=== PATIENT | male | born 1935 | race African-American/Black ===

== ENCOUNTER 2019-01-15 09:49 | Inpatient (IN) | payer MEDICARE ==
[~2019-01-15] VITALS: Ht 165.1 cm; Wt 62.6 kg
[~2019-01-15 09:49] MED LIST: ALBU05 IH; DILT180C3 PO; FERR-43 PO; FOLI-43 PO; PANT40TA4 PO; RIVA10TA PO; THIAMINE; TIOT18CA3 IH; UNK MEDS
[2019-01-15] MEDS ORDERED: SODIUM CHLORIDE 0.9% 500 ML IV ONE (10:39)
[2019-01-15 11:07] LABS: BASOPHILS % 1.2 % (0.0-2.0); EOSINOPHILS % 1.7 % (0.0-5.0); HEMATOCRIT. 41.7 % (42.0-52.0); HEMOGLOBIN. 13.4 g/dL (14.0-18.0); LYMPHOCYTES % 21.4 % (20.0-50.0); MEAN CORPUSCULAR HEMOGLOBIN 27.3 pg (28.0-32.0); MEAN CORPUSCULAR VOLUME 85.1 fL (80.0-94.0); MEAN PLATELET VOLUME 9.7 fl (7.4-10.4); MONOCYTES % 7.2 % (2.0-8.0); NEUTROPHILS % 68.5 % (40.0-76.0); PLATELET 183 x1000/uL (130-400); RED CELL DISTRIBUTION WIDTH 15.3 % (11.6-14.6)
[2019-01-15 11:52] LABS: CHLORIDE 106 mEq/L (98-107)
[2019-01-15] MEDS ORDERED: ASPIRIN 325MG TABLET PO ONE (12:45)
[2019-01-15] MEDS ORDERED: ALBUTEROL (0.083%) 2.5MG/3ML NEB HHN PRN (14:30)
[2019-01-15 16:00] VITALS: BP 143/60
[2019-01-15] MEDS ORDERED: CLONIDINE 0.1MG TABLET PO PRN (16:15)
[2019-01-15] MEDS ORDERED: HYDRALAZINE 20MG/ML VIAL IV PRN (16:15)
[2019-01-15] MEDS: RIVAROXABAN 15 MG TABLET PO SCH (17:54)
[2019-01-15] MEDS: DILTIAZEM HCL 30MG TABLET PO SCH (17:54)
[2019-01-15 20:26] VITALS: BP 166/75
[2019-01-16 00:22] VITALS: BP 100/64
[2019-01-16 06:29] LABS: CHLORIDE 110 mEq/L (98-107)
[2019-01-16 06:44] LABS: TOTAL IRON BINDING CAPACITY 202 ug/dL (250-450)
[2019-01-16 06:45] LABS: BASOPHILS % 0.6 % (0.0-2.0); EOSINOPHILS % 2.5 % (0.0-5.0); HDL CHOLESTEROL 91 mg/dL (40-59); HEMATOCRIT. 35.5 % (42.0-52.0); HEMOGLOBIN. 11.6 g/dL (14.0-18.0); LYMPHOCYTES % 29.1 % (20.0-50.0); MEAN CORPUSCULAR HEMOGLOBIN 27.5 pg (28.0-32.0); MEAN CORPUSCULAR VOLUME 83.9 fL (80.0-94.0); MEAN PLATELET VOLUME 9.6 fl (7.4-10.4); MONOCYTES % 12.1 % (2.0-8.0); NEUTROPHILS % 55.7 % (40.0-76.0); PLATELET 170 x1000/uL (130-400); RED BLOOD CELL COUNT 4.23 mill/uL (4.7-6.1); RED CELL DISTRIBUTION WIDTH 15.5 % (11.6-14.6)
[2019-01-16 06:52] LABS: LDL CHOLESTEROL 81 mg/dL (5-100)
[2019-01-16 08:00] VITALS: BP_SYST 142; BP_SYST 150; BP_SYST 153; BP_DIAS 52; BP_DIAS 53; BP_DIAS 54
[2019-01-16] MEDS: DILTIAZEM HCL 30MG TABLET PO SCH ×2 (08:36→16:24)
[2019-01-16] MEDS: UMECLIDINIUM BROMIDE 1 INH BLST.W.DEV IH SCH ×2 (09:00→11:41)
[2019-01-16] MEDS ORDERED: PANTOPRAZOLE 40MG DR TABLET PO SCH (09:00)
[2019-01-16] MEDS ORDERED: ASPIRIN 81MG EC TABLET PO SCH (09:00)
[2019-01-16 09:08] LABS: *AMPHETAMINES SCREEN URINE NEGATIVE (NEGATIVE); *BARBITURATES SCREEN URINE NEGATIVE (NEGATIVE); *BENZODIAZEPINES SCREEN URINE NEGATIVE (NEGATIVE); CANNABINOID URINE SCREEN NEGATIVE (NEGATIVE); METHADONE URINE SCREEN NEGATIVE (NEGATIVE); OPIATES URINE SCREEN NEGATIVE (NEGATIVE); PHENCYCLIDINE URINE SCREEN NEGATIVE (NEGATIVE)
[2019-01-16 09:09] LABS: *COCAINE SCREEN URINE NEGATIVE (NEGATIVE)
[2019-01-16 12:00] VITALS: BP 126/52
[2019-01-16] MEDS ORDERED: POTASSIUM CHLORIDE 20MEQ/PACKET PO NR (13:15)
[2019-01-16 16:00] VITALS: BP 142/63
[2019-01-16 16:30] VITALS: BP 142/63
[2019-01-16] MEDS: RIVAROXABAN 15 MG TABLET PO SCH (16:38)
== END 2019-01-16 16:45 | disposition home or self-care (01) | DRG 74 ==
LOC: ER 09:49 → 6WST 12:55 → ENRESERV 13:55
PROVIDERS: ADMIT Internal Medicine Critical Care Medicine; ATTEND Internal Medicine Critical Care Medicine
DX: G90.8 Other disorders of autonomic nervous system (principal); I25.2 Old myocardial infarction; I25.10 Atherosclerotic heart disease of native coronary artery without angina pectoris; I10 Essential (primary) hypertension; F10.10 Alcohol abuse, uncomplicated; D50.9 Iron deficiency anemia, unspecified; R00.1 Bradycardia, unspecified; I48.0 Paroxysmal atrial fibrillation; J44.9 Chronic obstructive pulmonary disease, unspecified; N28.9 Disorder of kidney and ureter, unspecified; Z79.01 Long term (current) use of anticoagulants; Z87.891 Personal history of nicotine dependence
CPT/HCPCS: 36415; 71045; 80061; 80305; 83540; 83550; 83735; 83880; 84443; 84484; 85379; 93005; 93306; 96360; 96361; 99285; J0360; J7030